=== PATIENT | male | born 1985 | race Caucasian/White ===

== ENCOUNTER 2017-05-13 09:17 | Inpatient (IN) ==
[2017-05-13] MEDS ORDERED: *HR* HYDROmorphone (PF) 1 MG/ML SYRINGE IVP ONE ×3 (09:30→16:30)
[2017-05-13] MEDS ORDERED: Ondansetron 4 MG/2 ML VIAL IVP ONE (09:30)
[2017-05-13] MEDS ORDERED: 0.9 % Sodium Chloride 1,000 ML IVC ONE (09:31)
--- NOTE | 2017-05-13 09:46 | Emergency Department Note ---
Disposition Clinical Impression: Renal colic Hydronephrosis Qualifiers: Hydronephrosis type: unspecified Qualified Code(s): N13.30 - Unspecified hydronephrosis Disposition: Admitted As Inpatient Condition: Good Referrals: Iraida Land MD [Primary Care Provider] - Forms: ED Satisfaction Letter, Work/School Release Time of Disposition: 10:58 Abdominal Pain HPI - General Chief Complaint: ED Abdominal Pain Stated Complaint: "kidney stones" Time Seen by Provider: 05/13/17 09:29 Source: patient, family Mode of arrival: ambulatory Limitations: no limitations Nursing Notes Reviewed: Yes Vital Signs Reviewed: Yes - History of Present Illness HPI Narrative: 32-year-old male who was scheduled for right kidney stone extraction and apparently they was not completed due to the fact of complication found during the procedure. Patient comes in with severe right flank pain. Pt Subjective Complaint: abdominal pain, flank pain Onset (ago): hour(s) Consistency: constant Location: R flank Pain Scale: 10 Quality: aching Radiation: none Migration to: no migration Improves with: nothing Worsens with: nothing Context: other Associated symptoms: Reports: nausea - Related Data Home Medications Medication Instructions Recorded Confirmed Citalopram Hydrobromide 10 mg PO BID 05/11/17 05/13/17 [Citalopram HBr] Gemfibrozil [Lopid] 600 mg PO BID 05/11/17 05/13/17 Lisinopril [Zestril] 10 mg PO HS 05/11/17 05/13/17 Allergies Allergy/AdvReac Type Severity Reaction Status Date / Time atenolol Allergy See Verified 05/13/17 09:18 Comments atorvastatin [From Lipitor] Allergy Itching Verified 05/13/17 09:18 Bee Pollen Allergy See Verified 05/13/17 09:18 Comments ketorolac [From Toradol] Allergy Anaphylaxis Verified 05/13/17 09:18 simvastatin Allergy Cramping Verified 05/13/17 09:18 of the Muscles All systems ED: reviewed and negative except as stated. Constitutional: Denies: fever, chills, weakness, weight change Eyes: Denies: eye pain, eye discharge, vision change ENT ED: Denies: ear pain, throat pain, dental pain, hearing loss, epistaxis, congestion, dysphagia Cardiovascular: Denies: chest pain, palpitations, dyspnea on exertion, edema, syncope Respiratory: Denies: cough, dyspnea, wheezes, hemoptysis, stridor Gastrointestinal: Reports: abdominal pain. Denies: nausea, vomiting, diarrhea, constipation, hematemesis, melena, hematochezia Genitourinary: Denies: urgency, dysuria, frequency, hematuria Musculoskeletal: Reports: back pain. Denies: neck pain, arthralgia, myalgia Integumentary: Denies: rash, abrasion, lesions Neurological: Denies: headache, weakness, numbness, paresthesias, confusion, abnormal gait, vertigo Psychiatric: Denies: anxiety, depression, suicidal thoughts, homicidal thoughts , auditory hallucinations, visual hallucinations Endocrine: Denies: fatigue Hematological/Lymphatic: Denies: easy bleeding, easy bruising Allergic/Immunologic: Denies: facial swelling, urticaria Abdominal Pain PMH - Past Medical History Medical history: Reports: hyperlipidemia, hypertension, kidney stones Male Surgical History: Reports: other Psychiatric history: Reports: anxiety - Social History Smoking status: Never smoker Alcohol use: Reports: none Drug use: Reports: none Physical Exam - General Limitations: no limitations General appearance: alert, anxious - Head Head exam: atraumatic, normocephalic, normal inspection - Eye Eye exam: Present: normal appearance, PERRL, EOMI - ENT ENT exam: normal exam, normal oropharynx, mucous membranes moist - Neck Neck exam: Present: normal inspection, full ROM, trachea midline - Chest Chest inspection: Present: normal inspection, symmetric chest wall rise - Respiratory Respiratory exam: Present: normal lung sounds bilaterally - Cardiovascular Cardiovascular exam: Present: regular rate, normal rhythm, normal heart sounds - Abdominal Exam Abdominal exam: Present: soft, Non-Tender. Absent: tenderness, distention, guarding, rebound, rigidity - Extremities Exam Extremities exam: Present: normal inspection, full ROM. Absent: tenderness, pedal edema - Expanded Lower Extremity Exam Neurovascular/Tendon exam: Absent: motor deficit, sensory deficit, tendon deficit - Back Exam Back exam: Present: normal inspection, full ROM. Absent: tenderness - Neurological Exam Neurological exam: Present: alert, oriented X3 - Psychiatric Psychiatric exam: Present: normal affect, normal mood - Skin Skin exam: Present: warm, dry, intact, normal color Course - Reevaluation(s) Reevaluation #1: 32-year-old who has a history of a renal stone who was undergoing a procedure that was aborted says his pain is worse today. CT scan shows some increased hydronephrosis which the etiology is unknown could be a passed stone. Patient has intractable pain will be admitted to the hospitalist with a consult on urology. Time: 11:13 - Consultations Consultation #1: Discussd with Dr. Vallejo, admit to the hosptialist and he will see in consult. Time: 10:57 Consultation #2: Discussed with Dr. Amezcua admit. Time: 11:12 Vital Signs Temperature 97.5 F L 05/13/17 09:18 Pulse Rate 67 05/13/17 09:18 Respiratory Rate 18 05/13/17 09:18 Blood Pressure 144/99 05/13/17 09:18 O2 Sat by Pulse Oximetry 100 05/13/17 09:18 Temperature 97.5 F L 05/13/17 09:18 Pulse Rate 65 05/13/17 11:03 Respiratory Rate 16 05/13/17 11:03 Blood Pressure 128/75 05/13/17 11:03 O2 Sat by Pulse Oximetry 93 05/13/17 11:03 Oxygen Delivery Oxygen Delivery Room Air Abdominal Pain - Lab Data Lab results reviewed: Yes I reviewed the patient's lab results. Result diagrams: 05/13/17 09:40 05/13/17 09:40 Lab Results 05/13/17 05/13/17 05/13/17 Range/Units 09:40 09:40 10:57 WBC 7.9 (4.3-11.1) K/mcL RBC 4.97 (4.19-5.50) M/mcL Hgb 14.6 (12.9-16.9) g/dL Hct 43.0 (37.5-50.1) % MCV 86.5 (83.0-100.0) fL MCH 29.4 (28.0-33.3) pg MCHC 34.0 (31.6-35.5) g/dL RDW 13.2 (11.5-14.5) % Plt Count 265 (140-400) K/mcL MPV 8.6 L (9.4-12.4) fL Immature Gran % 0.5 (0-4) % Seg Neutrophils % 52.4 % Lymphocytes % 30.8 % Monocytes % 9.9 % Eosinophils % 6.0 % Basophils % 0.4 % Neutrophils # 4.1 (1.6-8.9) K/mcL Lymphocytes # 2.4 (0.6-4.6) K/mcL Monocytes # 0.8 (0.0-1.3) K/mcL Eosinophils # 0.5 (0.0-0.6) K/mcL Basophils # 0.0 (0.0-0.2) K/mcL Sodium 140 (136-145) mEq/L Potassium 3.5 (3.5-4.5) mEq/L Chloride 102 (98-109) mEq/L Carbon Dioxide 27 (19-29) mEq/L BUN 14 (8-26) mg/dL Creatinine 1.04 (0.72-1.25) mg/dL Est GFR ( Amer) > 60 (> 60) Est GFR (Non-Af Amer) > 60 (> 60) BUN/Creatinine Ratio 13 (6-26) Glucose 90 (70-99) mg/dL Calculated Osmolality 290 (280-300) Calcium 9.6 (8.6-10.8) mg/dL Urine Color Yellow (Yellow) Urine Clarity Clear (Clear) Urine pH 6.5 (5.0-8.0) pH Units Ur Specific [place] 1.018 (1.010-1.025) Urine Protein 30 H (Neg-Trace) mg/dL Urine Glucose (UA) Normal (Normal) mg/dL Urine Ketones Negative (Negative) mg/dL Urine Blood Large H (Negative) Urine Nitrite Negative (Negative) Urine Bilirubin Negative (Negative) Urine Urobilinogen Normal (Normal) mg/dL Ur Leukocyte Esterase Negative (Negative) Urine Microscopic RBC 50-100 H (0-3) per hpf Urine Microscopic WBC 15-30 H (0-3) per hpf Ur Squamous Epith Cells Few (None-Few) per lpf Urine Bacteria None Seen (None-Few) per hpf Hyaline Casts None Seen (None-Few) per lpf Ur Culture Indicated? NO (NO) - Radiology Data Radiology results reviewed: Yes I reviewed the patient's radiology results. Abdomen/Pelvis CT 05/13/17 09:30 IMPRESSION: 1. Hydronephrosis and right ureteral dilation however no definite, obstructing lithiasis is identified. This appearance can be seen with a recently passed stone. 2. Re- demonstrated 11 mm calculus about the inferior pole of the right kidney. 3. Surgical clips are on the ureteropelvic junction and along the course of the ureter. 4. Submucosal fat deposition and mild mesenteric adenopathy in the right lower quadrant. Please correlate for any history of inflammatory bowel disease. D/ / Sharif Okeefe / Sharif Okeefe Interpreting Provider: Sharif Okeefe
[2017-05-13 09:51] LABS: Basophils % 0.4 %; Eosinophils # 0.5 K/mcL (0.0-0.6); Hemoglobin 14.6 g/dL (12.9-16.9); Immature Granulocytes % 0.5 % (0-4); Lymphocytes # 2.4 K/mcL (0.6-4.6); Lymphocytes % 30.8 %; Mean Corpuscular Hemoglobin 29.4 pg (28.0-33.3); Mean Corpuscular Volume 86.5 fL (83.0-100.0); Mean Platelet Volume 8.6 fL (9.4-12.4); Monocytes # 0.8 K/mcL (0.0-1.3); Monocytes % 9.9 %; Neutrophils # 4.1 K/mcL (1.6-8.9); Platelet Count 265 K/mcL (140-400); Red Blood Count 4.97 M/mcL (4.19-5.50); Red Cell Distribution Width 13.2 % (11.5-14.5); Segmented Neutrophils % 52.4 %
[2017-05-13 10:01] LABS: BUN/Creatinine Ratio 13 (6-26); Blood Urea Nitrogen 14 mg/dL (8-26); Calcium 9.6 mg/dL (8.6-10.8); Carbon Dioxide 27 mEq/L (19-29); Chloride 102 mEq/L (98-109); Glucose 90 mg/dL (70-99); Osmolality,Calculated 290 (280-300); Potassium 3.5 mEq/L (3.5-4.5); Sodium 140 mEq/L (136-145); eGFR For African Americans > 60 (> 60); eGFR For Non-African Americans > 60 (> 60)
[2017-05-13 11:08] LABS: Bilirubin,Urine Negative (Negative); Blood,Urine Large (Negative); Clarity,Urine Clear (Clear); Color,Urine Yellow (Yellow); Glucose,Urine (UA) Normal (Normal); Ketones,Urine Negative (Negative); Leukocyte Esterase,Urine Negative (Negative); Nitrite,Urine Negative (Negative); PH,Urine 6.5 pH Units (5.0-8.0); Protein,Urine 30 mg/dL (Neg-Trace); Specific Gravity,Urine 1.018 (1.010-1.025); Urobilinogen,Urine Normal (Normal)
[2017-05-13 11:11] LABS: Bacteria,Urine None Seen per hpf (None-Few); Hyaline Casts,Urine None Seen per lpf (None-Few); RBC,Urine 50-100 per hpf (0-3); Squamous Epithelial Cell,Urine Few per lpf (None-Few); WBC,Urine 15-30 per hpf (0-3)
[2017-05-13] MEDS ORDERED: Hyoscyamine SL 0.125 MG TAB.SUBL SL PRN (12:35)
--- NOTE | 2017-05-13 12:38 | Urology - Consult Note ---
Date of Encounter: 05/13/17 Time of Encounter: 12:36 - Assessment and Plan (1) Hydronephrosis Current Visit: Yes Status: Acute Assessment and plan: At this point I believe the patient is having ureteral spasms with subsequent obstruction. These will resolve. At this point patient does not desire a ureteral stent. If his pain fails to improve then we will consider consulting interventional radiology for right nephrostomy tube placement. We will place the patient on Valium and Levsin for ureteral spasms at this time. We will continue to follow closely along. Thank you for consultation. Qualifiers: Hydronephrosis type: unspecified Qualified Code(s): N13.30 - Unspecified hydronephrosis Urology CN:HPI Consult date: 05/13/17 Reason for consult Urology: Other (right flank pain) Requesting physician: Troy Amezcua History of present illness: Mr. Tenorio is a 32-year-old male with a history of recent right ureteroscopy. 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 Patient had to be admitted after surgery secondary to a anaphylactic reaction to Toradol. He was discharged home the following day without any issues. Patient was doing well until 2 AM last night when he started to develop severe right- sided flank pain. CT scan was done today which showed moderate hydronephrosis in the kidney as well as down the ureter. No obvious ureteral obstruction noted. Lab work from today is normal. Past Med Surg Social Fam HX - Past Medical History Medical history: hyperlipidemia, hypertension, kidney stones Psychiatric history: anxiety - Social History Smoking Status: Never smoker Smokeless Tobacco Status: No Alcohol use: none Drug use: none Medications and Allergies Citalopram Hydrobromide [Citalopram HBr] 10 mg PO BID 05/11/17 [History] Gemfibrozil [Lopid] 600 mg PO BID 05/11/17 [History] Lisinopril [Zestril] 10 mg PO HS 05/11/17 [History] 3 Allergy/AdvReac Type Severity Reaction Status Date / Time atenolol Allergy See Verified 05/13/17 09:18 Comments atorvastatin [From Lipitor] Allergy Itching Verified 05/13/17 09:18 Bee Pollen Allergy See Verified 05/13/17 09:18 Comments ketorolac [From Toradol] Allergy Anaphylaxis Verified 05/13/17 09:18 simvastatin Allergy Cramping Verified 05/13/17 09:18 of the Muscles Review of Systems - Constitutional no chills - EENT Nose, mouth and throat: no dizziness - Cardiovascular no chest pain - Respiratory no cough - Gastrointestinal abdominal pain - Musculoskeletal back pain - Integumentary no erythema - Neurological no confusion - Psychiatric no anxiety Exam Initial Vital Signs Temp Pulse Resp BP Pulse Ox 97.5 F L 67 18 144/99 100 05/13/17 09:18 05/13/17 09:18 05/13/17 09:18 05/13/17 09:18 05/13/17 09:18 - General physical appearance Present: well developed - Eyes Present: PERRL - ENT Present: normal nares - Neck Present: no masses - Respiratory Present: normal respiratory effort - Cardiovascular Cardiovascular exam IM: RRR - Abdomen Abdomen: Present: soft Urology Results - Labs 05/13/17 09:40 05/13/17 09:40 Abnormal lab results MPV 8.6 fL (9.4-12.4) L 05/13/17 09:40 Urine Protein 30 mg/dL (Neg-Trace) H 05/13/17 10:57 Urine Blood Large (Negative) H 05/13/17 10:57 Urine Microscopic RBC 50-100 per hpf (0-3) H 05/13/17 10:57 Urine Microscopic WBC 15-30 per hpf (0-3) H 05/13/17 10:57 All other labs normal. - Imaging CT scan - abdomen: image reviewed CT scan - pelvis: image reviewed Consult Discharge Plan - Plan Referrals: Iraida Land MD [Primary Care Provider] -
[2017-05-13] MEDS ORDERED: *HR* HYDROmorphone (PF) 1 MG/ML SYRINGE IVP PRN (12:49)
[2017-05-13] MEDS ORDERED: Naloxone 0.4 MG/ML INJ IVP PRN (12:49)
[2017-05-13] MEDS: diazePAM 5 MG TABLET PO SCH ×2 (12:56→21:55)
--- NOTE | 2017-05-13 12:59 | Internal Med History&Physical ---
<So Queen - Last Filed: 05/13/17 13:09> Date of Encounter: 05/13/17 Time of Encounter: 12:56 Assessment and Plan (1) Hydronephrosis Current visit: Yes Status: Acute Patient has been experiencing right flank pain-history of kidney stones with a recent right ureteroscopy. Continues to experience right flank pain CT scan does show moderate hydronephrosis and the kidney as well as down the ureter no obvious unilateral obstruction noted. Urology has been consulted 2 we will give IV fluids 3 continue with Dilaudid for pain 4 Zofran for nausea Qualifiers: Hydronephrosis type: unspecified Qualified Code(s): N13.30 - Unspecified hydronephrosis (2) Right kidney stone Current visit: No Status: Acute 1 CT of abdomen does show 11 mm calculus about the inferior pole of the right kidney. Urology has been consulted 2 continue with IV fluids 3 Dilaudid and Zofran as needed 4 strain urine (3) Hypertension Current visit: No Status: Chronic Presently stable we will continue with home medications Qualifiers: Hypertension type: essential hypertension Qualified Code(s): I10 - Essential (primary) hypertension (4) DVT prophylaxis Current visit: No Status: Acute SCDs Internal Medicine - H&P: HPI Chief complaint: R flank pain Admitted From: Emergency Dept Plans for Post Hospital Care: Home History of present illness: Mr. Tenorio is a 32 year old male past medical history of hypertension hyperlipidemia kidney stones. 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 He experienced an anaphylactic reaction to Toradol postoperatively and was admitted overnight for observation and discharged without any issues. Patient was doing well until approximately 2 AM last night when he developed severe right sided flank pain which radiated to his abdomen. He presented to the ER a CT of his abdomen did show moderate hydronephrosis no obvious ureteral obstruction noted. Lab work was unremarkable. He was admitted for further work up evaluation. Urology has been consultation per ER physician. Presently the patient does complain of right flank pain upon movement otherwise he is comfortable and hemodynamically stable at this time. I did review this case with Dr. Amezcua who agrees with plan. Past Med Surg Social Fam HX - Past Medical History Medical history: hyperlipidemia, hypertension, kidney stones Psychiatric history: anxiety - Social History Smoking Status: Never smoker Smokeless Tobacco Status: No Alcohol use: none Drug use: none - Family History Father Living Status: Still Living Hx Family Cardiac Disorders: Yes (History of CAD with multiple stents first [place] at age 28) Mother Living Status: Still Living Hx Family Endocrine Disorder: Yes (Diabetes, hypertension) Internal Medicine - H&P: Meds Citalopram Hydrobromide [Citalopram HBr] 10 mg PO BID 05/11/17 [History] Gemfibrozil [Lopid] 600 mg PO BID 05/11/17 [History] Lisinopril [Zestril] 10 mg PO HS 05/11/17 [History] 3 Allergy/AdvReac Type Severity Reaction Status Date / Time atenolol Allergy See Verified 05/13/17 09:18 Comments atorvastatin [From Lipitor] Allergy Itching Verified 05/13/17 09:18 Bee Pollen Allergy See Verified 05/13/17 09:18 Comments ketorolac [From Toradol] Allergy Anaphylaxis Verified 05/13/17 09:18 simvastatin Allergy Cramping Verified 05/13/17 09:18 of the Muscles All Systems PM: A 10-system review of systems was performed and is negative for pertinent findings except as documented above in the HPI. - Constitutional Constitutional: no chills, no fever(s), no night sweats - EENT Eyes: no change in vision, no discharge, no pain, no photophobia Ears: no ear discharge, no ear pain, no tinnitus Nose, mouth and throat: no dysphagia, no nasal discharge, no neck pain, no sore throat - Cardiovascular Cardiovascular ROS IM: no chest pain, no diaphoresis, no dyspnea, no lightheadedness, no palpitations, no syncope - Respiratory Respiratory: no cough, no dyspnea, no wheezing, no excessive phlegm production - Gastrointestinal Gastrointestinal: abdominal pain, nausea - Musculoskeletal Musculoskeletal ROS IM: back pain, no numbness, no tingling - Integumentary Integumentary IM: no rash, no unusual bruising - Neurological Neurological ROS: no confusion, no convulsions, no focal weakness, no numbness, no tingling, no tremor(s) - Hematologic/Lymphatic Hematologic/Lymphatic: no easy bruising - Constitutional Vitals: Temp Pulse Resp BP Pulse Ox 97.5 F L 83 14 119/76 97 05/13/17 09:18 05/13/17 11:53 05/13/17 11:53 05/13/17 11:53 05/13/17 11:53 General appearance: Present: A&O X 3 - Head Head exam: Present: atraumatic, normocephalic - Eye Eye exam: Present: PERRL, conjuntiva pink, sclera anicteric Pupils: Present: PERRL - Neck Neck exam general surgery: Present: supple, trachea midline. Absent: lymphadenopathy - Respiratory Respiratory exam: Present: CTAB. Absent: accessory muscle use, rales, rhonchi, wheezes - Cardiovascular Cardiovascular exam: Present: RRR, +S1, +S2. Absent: diastolic murmur, gallop, rubs, systolic murmur - GI/Abdominal GI/Abdominal exam: Present: normal bowel sounds, soft, no peritoneal signs. Absent: distended, tenderness - Extremities Exam Extremities exam: Present: warm, radial pulses palpable and symmetrical. Absent : calf tenderness, cyanotic, pedal edema - Back Exam Back exam: Present: CVA tenderness (R) - Neurological Exam Neurological exam: Present: CN II-XII intact, oriented X3, no focal deficits. Absent: pronater drift, facial droop, speech deficit - Skin Skin exam: Present: dry, intact Internal Med - H&P Results - Labs CBC & Chem 7: 05/13/17 09:40 05/13/17 09:40 - Diagnostic Studies Other Images Additional comments: Abdomen/Pelvis CT 05/13/17 09:30 IMPRESSION: 1. Hydronephrosis and right ureteral dilation however no definite, obstructing lithiasis is identified. This appearance can be seen with a recently passed stone. 2. Re- demonstrated 11 mm calculus about the inferior pole of the right kidney. 3. Surgical clips are on the ureteropelvic junction and along the course of the ureter. 4. Submucosal fat deposition and mild mesenteric adenopathy in the right lower quadrant. Please correlate for any history of inflammatory bowel disease. D/ / Sharif Okeefe / Sharif Okeefe Interpreting Provider: Sharif Okeefe <Goldie,Troy P - Last Filed: 05/15/17 07:43> Date of Encounter: 05/15/17 Internal Medicine - H&P: HPI History of present illness: Mr. Tenorio is a 32 year old male All Systems PM: A 10-system review of systems was performed and is negative for pertinent findings except as documented above in the HPI. - Constitutional Vitals: Temp Pulse Resp BP Pulse Ox 99.1 F 98 18 101/58 95 05/15/17 06:36 05/15/17 06:36 05/15/17 06:36 05/15/17 06:36 05/15/17 06:36 Internal Med - H&P Results - Labs CBC & Chem 7: 05/14/17 04:06 05/14/17 04:06 Labs: Urine 05/14/17 Range/Units 15:41 Urine Color Yellow (Yellow) Urine Clarity Clear (Clear) Urine pH 7.5 (5.0-8.0) pH Units Ur Specific [place] 1.013 (1.010-1.025) Urine Protein Trace (Neg-Trace) mg/dL Urine Glucose (UA) Normal (Normal) mg/dL - Attending Attestation I examined this patient and my medical decision-making was reviewed with the Resident Physician/PUTTY WORKER. I agree with the documented findings, disposition and treatment plan as described except to the extent set forth below. patient seen and examined chart reviewed. Assessment and plan discussed with PUTTY WORKER Agree with overall management.
[2017-05-13] MEDS: 0.9 % Sodium Chloride 1,000 ML IVC SCH ×2 (13:31→21:30)
[2017-05-13] MEDS ORDERED: *HR* HYDROmorphone (PF) 1 MG/ML SYRINGE IM ONE (16:30)
[2017-05-13] MEDS: Ondansetron 4 MG/2 ML VIAL IVP PRN (16:31)
[2017-05-13] MEDS: *HR* HYDROmorphone (PF) 1 MG/ML SYRINGE IVP PRN ×2 (20:26→23:45)
[2017-05-13] MEDS: *HR* Morphine 2 MG/ML SYRINGE IVP PRN (22:59)
[2017-05-14 05:05] LABS: Basophils % 0.2 %; Eosinophils # 0.3 K/mcL (0.0-0.6); Hematocrit 37.6 % (37.5-50.1); Immature Granulocytes % 0.6 % (0-4); Lymphocytes # 1.3 K/mcL (0.6-4.6); Lymphocytes % 11.7 %; Mean Corpuscular Volume 88.1 fL (83.0-100.0); Monocytes # 1.1 K/mcL (0.0-1.3); Monocytes % 9.9 %; Neutrophils # 8.4 K/mcL (1.6-8.9); Platelet Count 226 K/mcL (140-400); Red Blood Count 4.27 M/mcL (4.19-5.50); Red Cell Distribution Width 13.2 % (11.5-14.5); Segmented Neutrophils % 74.6 %
[2017-05-14 05:14] LABS: Hemoglobin 12.4 g/dL (12.9-16.9)
[2017-05-14 05:24] LABS: BUN/Creatinine Ratio 15 (6-26); Blood Urea Nitrogen 17 mg/dL (8-26); Calcium 9.3 mg/dL (8.6-10.8); Carbon Dioxide 29 mEq/L (19-29); Chloride 102 mEq/L (98-109); Glucose 95 mg/dL (70-99); Magnesium 2.1 mg/dL (1.6-2.6); Osmolality,Calculated 287 (280-300); Potassium 4.1 mEq/L (3.5-4.5); Sodium 138 mEq/L (136-145); eGFR For African Americans > 60 (> 60); eGFR For Non-African Americans > 60 (> 60)
--- NOTE | 2017-05-14 08:42 | Urology Progress Note ---
Date of Encounter: 05/14/17 Time of Encounter: 08:41 - Assessment and Plan (1) Hydronephrosis Current Visit: Yes Status: Acute Assessment and plan: will reeval at lunch. if not much improved will see about IR placing nephrostomy tube Qualifiers: Hydronephrosis type: unspecified Qualified Code(s): N13.30 - Unspecified hydronephrosis Progress Note Narrative: patient seen. states pain is slightly better. Objective Initial Vital Signs Temp Pulse Resp BP Pulse Ox 97.5 F L 67 18 144/99 100 05/13/17 09:18 05/13/17 09:18 05/13/17 09:18 05/13/17 09:18 05/13/17 09:18 - General physical appearance Present: well developed - Abdomen Present: soft - Labs 05/14/17 04:06 05/14/17 04:06 Diabetes panel 05/14/17 Range/Units 04:06 Sodium 138 (136-145) mEq/L Potassium 4.1 (3.5-4.5) mEq/L Chloride 102 (98-109) mEq/L Carbon Dioxide 29 (19-29) mEq/L BUN 17 (8-26) mg/dL Creatinine 1.10 (0.72-1.25) mg/dL Glucose 95 (70-99) mg/dL Calcium 9.3 (8.6-10.8) mg/dL Calcium panel 05/14/17 Range/Units 04:06 Calcium 9.3 (8.6-10.8) mg/dL Pituitary panel 05/14/17 Range/Units 04:06 Sodium 138 (136-145) mEq/L Potassium 4.1 (3.5-4.5) mEq/L Chloride 102 (98-109) mEq/L Carbon Dioxide 29 (19-29) mEq/L BUN 17 (8-26) mg/dL Creatinine 1.10 (0.72-1.25) mg/dL Glucose 95 (70-99) mg/dL Calcium 9.3 (8.6-10.8) mg/dL Adrenal panel 05/14/17 Range/Units 04:06 Sodium 138 (136-145) mEq/L Potassium 4.1 (3.5-4.5) mEq/L Chloride 102 (98-109) mEq/L Carbon Dioxide 29 (19-29) mEq/L BUN 17 (8-26) mg/dL Creatinine 1.10 (0.72-1.25) mg/dL Glucose 95 (70-99) mg/dL Calcium 9.3 (8.6-10.8) mg/dL Consult Discharge Plan - Plan Referrals: Iraida Land MD [Primary Care Provider] -
[2017-05-14] MEDS: diazePAM 5 MG TABLET PO SCH (09:21)
[2017-05-14] MEDS: 0.9 % Sodium Chloride 1,000 ML IVC SCH ×2 (13:37→21:27)
--- NOTE | 2017-05-14 14:57 | Internal Med Progress Note ---
Date of Encounter: 05/14/17 Time of Encounter: 14:55 - Assessment and plan (1) Pyelonephritis Current Visit: Yes Status: Acute Assessment and plan: Urine and blood culture and start IV Rocephin followed CBC (2) Right kidney stone Current Visit: No Status: Acute Assessment and plan: 11 mm stone in the right inferior pole ,urology is consulted (3) Hydronephrosis Current Visit: Yes Status: Acute Assessment and plan: Right hydronephrosis and no obvious obstruction urology has seen the patient planning nephrostomy tube. Follow CMP Qualifiers: Hydronephrosis type: unspecified Qualified Code(s): N13.30 - Unspecified hydronephrosis - Subjective Interval history: Admitted for right sided hydronephrosis and renal calculi. Low-grade temperature and in quite a bit of pain. No hematuria. - Constitutional Vitals: Temp Pulse Resp BP Pulse Ox 99.6 F 100 14 130/73 95 05/14/17 11:52 05/14/17 11:52 05/14/17 11:52 05/14/17 11:52 05/14/17 11:52 General appearance: Present: A&O X 3 - Head Head exam: Present: atraumatic, normocephalic - Eye Eye exam: Present: PERRL, conjuntiva pink, sclera anicteric Pupils: Present: PERRL - Neck Neck exam general surgery: Present: supple, trachea midline. Absent: lymphadenopathy - Respiratory Respiratory exam: Present: CTAB. Absent: accessory muscle use, rales, rhonchi, wheezes - Cardiovascular Cardiovascular exam: Present: RRR, +S1, +S2. Absent: diastolic murmur, gallop, rubs, systolic murmur - GI/Abdominal GI/Abdominal exam: Present: normal bowel sounds, soft, tenderness, no peritoneal signs. Absent: distended Additional comments: Right flank and CVA pain - Extremities Exam Extremities exam: Present: warm, radial pulses palpable and symmetrical. Absent : calf tenderness, cyanotic, pedal edema - Neurological Exam Neurological exam: Present: CN II-XII intact, oriented X3, no focal deficits. Absent: pronater drift, facial droop, speech deficit - Skin Skin exam: Present: dry, intact Internal Medicine: Result - Labs CBC & Chem 7: 05/14/17 04:06 05/14/17 04:06 Labs: Short CBC 05/14/17 Range/Units 04:06 WBC 11.3 H (4.3-11.1) K/mcL Hgb 12.4 L D (12.9-16.9) g/dL Hct 37.6 (37.5-50.1) % Plt Count 226 (140-400) K/mcL Neutrophils # 8.4 (1.6-8.9) K/mcL BMP 05/14/17 04:06 Sodium 138 Potassium 4.1 Chloride 102 Carbon Dioxide 29 BUN 17 Creatinine 1.10 Glucose 95 Calcium 9.3 Consult Discharge Plan - Plan Referrals: Iraida Land MD [Primary Care Provider] -
[2017-05-14] MEDS: cefTRIAXone 1,000 MG in Water for inj. (sterile) 10 ML IVP SCH (15:06)
[2017-05-14] MEDS: Ondansetron 4 MG/2 ML VIAL IVP PRN (15:33)
[2017-05-14] MEDS: *HR* HYDROmorphone (PF) 1 MG/ML SYRINGE IVP PRN (15:33)
[2017-05-14 15:49] LABS: Bilirubin,Urine Negative (Negative); Blood,Urine Large (Negative); Clarity,Urine Clear (Clear); Color,Urine Yellow (Yellow); Glucose,Urine (UA) Normal (Normal); Ketones,Urine Negative (Negative); Leukocyte Esterase,Urine Moderate (Negative); Nitrite,Urine Negative (Negative); PH,Urine 7.5 pH Units (5.0-8.0); Protein,Urine Trace mg/dL (Neg-Trace); Specific Gravity,Urine 1.013 (1.010-1.025); Urobilinogen,Urine Normal (Normal)
[2017-05-14 15:51] LABS: Bacteria,Urine Few per hpf (None-Few); Hyaline Casts,Urine None Seen per lpf (None-Few); RBC,Urine 50-100 per hpf (0-3); Squamous Epithelial Cell,Urine Few per lpf (None-Few); WBC,Urine 15-30 per hpf (0-3)
[2017-05-14] MEDS: *HR* Morphine 2 MG/ML SYRINGE IVP PRN (21:24)
[2017-05-14] MEDS: Acetaminophen 325 MG TABLET PO PRN (21:25)
[2017-05-15] MEDS: Acetaminophen 325 MG TABLET PO PRN ×3 (04:21→21:05)
[2017-05-15] MEDS: 0.9 % Sodium Chloride 1,000 ML IVC SCH ×2 (04:22→14:12)
[2017-05-15] MEDS: *HR* Morphine 2 MG/ML SYRINGE IVP PRN (04:29)
--- NOTE | 2017-05-15 07:05 | Urology Progress Note ---
Date of Encounter: 05/15/17 Time of Encounter: 07:05 - Assessment and Plan (1) Hydronephrosis Current Visit: Yes Status: Acute Assessment and plan: will consult IR for nephrostomy tube placement today. Qualifiers: Hydronephrosis type: unspecified Qualified Code(s): N13.30 - Unspecified hydronephrosis Progress Note Narrative: patient seen. pain improved, but with significant fevers last night. labs pending. Objective Initial Vital Signs Temp Pulse Resp BP Pulse Ox 97.5 F L 67 18 144/99 100 05/13/17 09:18 05/13/17 09:18 05/13/17 09:18 05/13/17 09:18 05/13/17 09:18 - General physical appearance Present: well developed - Abdomen Present: soft - Labs 05/14/17 04:06 05/14/17 04:06 Consult Discharge Plan - Plan Referrals: Iraida Land MD [Primary Care Provider] -
[2017-05-15 07:21] LABS: Basophils % 0.2 %; Eosinophils # 0.1 K/mcL (0.0-0.6); Eosinophils % 0.9 %; Hematocrit 37.8 % (37.5-50.1); Immature Granulocytes % 0.4 % (0-4); Lymphocytes # 1.2 K/mcL (0.6-4.6); Lymphocytes % 9.4 %; Mean Corpuscular HGB Conc 34.4 g/dL (31.6-35.5); Mean Corpuscular Hemoglobin 29.3 pg (28.0-33.3); Mean Corpuscular Volume 85.3 fL (83.0-100.0); Mean Platelet Volume 8.8 fL (9.4-12.4); Monocytes # 1.5 K/mcL (0.0-1.3); Monocytes % 12.2 %; Neutrophils # 9.6 K/mcL (1.6-8.9); Platelet Count 208 K/mcL (140-400); Red Blood Count 4.43 M/mcL (4.19-5.50); Red Cell Distribution Width 12.9 % (11.5-14.5); Segmented Neutrophils % 76.9 %
[2017-05-15 07:42] LABS: Alanine Aminotransferase 10 Units/L (0-55); Albumin 3.2 g/dL (3.5-5.0); Albumin/Globulin Ratio 0.7 (1.1-2.2); Alkaline Phosphatase 109 Units/L (38-126); Aspartate Amino Transferase 12 Units/L (5-34); BUN/Creatinine Ratio 12 (6-26); Bilirubin,Total 0.9 mg/dL (0.2-1.2); Blood Urea Nitrogen 12 mg/dL (8-26); Carbon Dioxide 24 mEq/L (19-29); Chloride 103 mEq/L (98-109); Globulin 4.4 g/dL (2.4-3.5); Glucose 106 mg/dL (70-99); Osmolality,Calculated 282 (280-300); Potassium 3.6 mEq/L (3.5-4.5); Sodium 136 mEq/L (136-145); Total Protein 7.6 g/dL (6.0-8.3); eGFR For African Americans > 60 (> 60); eGFR For Non-African Americans > 60 (> 60)
[2017-05-15 07:45] LABS: INR 1.5; Prothrombin Time 16.4 Seconds (9.4-12.1)
[2017-05-15] MEDS ORDERED: *HR* FentaNYL (PF) 100 MCG/2 ML VIAL IVP ONE (09:24)
[2017-05-15] MEDS ORDERED: *HR* Midazolam HCl 2 MG/2 ML VIAL IVP ONE (09:24)
--- NOTE | 2017-05-15 09:24 | Pre-Sedation Evaluation ---
Pre-sedation evaluation - Pre-sedation checklist Recent Vitals: Last Vital Signs Temp 99.5 F 05/15/17 08:30 Pulse 87 05/15/17 08:30 Resp 16 05/15/17 08:30 BP 109/68 05/15/17 08:30 Pulse Ox 96 05/15/17 08:30 Airway Assessment: Patient can open mouth completely, TMJ function normal, Micrognathia (under-bite, receding chin) absent, Neck with adequate range of motion Dentition: No loose teeth or bridges Possible difficult airway: No ASA Classification *see protocol: CLASS II-Mild systemic disease Plan of Care: Pt appropriate candidate for procedure/moderate/conscious sedation , Risks/benefits of procedure/sedation discussed w/ patient/family
[2017-05-15] MEDS ORDERED: 0.9 % Sodium Chloride 500 ML ONE (09:31)
[2017-05-15] MEDS: *HR* HYDROmorphone (PF) 1 MG/ML SYRINGE IVP PRN ×2 (12:36→18:05)
[2017-05-15] MEDS: cefTRIAXone 1,000 MG in Water for inj. (sterile) 10 ML IVP SCH (14:42)
--- NOTE | 2017-05-15 16:45 | Internal Med Progress Note ---
Date of Encounter: 05/15/17 Time of Encounter: 11:50 - Assessment and plan (1) Sepsis Current Visit: Yes Status: Acute Assessment and plan: Pt does meet sepsis criteria with fever, elevated WBC, Source of inf as UTI / Pyelonephritis Urine cx growing G+ve cocci Cont empirical abx Rocephin cont IV fluids Qualifiers: Qualified Code(s): A41.9 - Sepsis, unspecified organism (2) Hydronephrosis Current Visit: Yes Status: Acute Assessment and plan: Right hydronephrosis and no obvious obstruction Mostly due to ureter spasm with recently passed stone as well as infection Urology on board had Nephrostomy placed today by IR Qualifiers: Hydronephrosis type: unspecified Qualified Code(s): N13.30 - Unspecified hydronephrosis (3) Hypertension Current Visit: No Status: Chronic Assessment and plan: resumed home meds Qualifiers: Hypertension type: essential hypertension Qualified Code(s): I10 - Essential (primary) hypertension (4) Pyelonephritis Current Visit: Yes Status: Acute Assessment and plan: Cont empirical abx Rocephin cont IV F on IV analgesics PRN (5) DVT prophylaxis Current Visit: No Status: Acute (6) UTI (urinary tract infection) Current Visit: Yes Status: Acute Qualifiers: Urinary tract infection type: acute pyelonephritis Qualified Code(s): N10 - Acute pyelonephritis - Subjective Interval history: Mr. Tenorio is a 32 year old male past medical history of hypertension hyperlipidemia kidney stones. 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 He experienced an anaphylactic reaction to Toradol postoperatively and was admitted overnight for observation and discharged without any issues. Patient was doing well until approximately the night prior to ER visit when he developed severe right sided flank pain which radiated to his abdomen. His CT of his abdomen did show moderate hydronephrosis no obvious ureteral obstruction noted. Pt was admitted in the hospital and did have Rt nephrosoty tube placed in today by IR. He still have some low grade temps, T max @102. 6 this morning. His pain is tolerable with current medications - Constitutional Vitals: Temp Pulse Resp BP Pulse Ox 100 F H 103 16 113/72 95 05/15/17 14:10 05/15/17 14:10 05/15/17 14:10 05/15/17 14:10 05/15/17 14:10 General appearance: Present: A&O X 3 - Head Head exam: Present: atraumatic, normal inspection - Neck Neck exam general surgery: Present: supple - Respiratory Respiratory exam: Present: decreased breath sounds. Absent: rales, respiratory distress, rhonchi, wheezes - Cardiovascular Cardiovascular exam: Present: RRR, +S1, +S2. Absent: tachycardia - GI/Abdominal GI/Abdominal exam: Present: normal bowel sounds, soft. Absent: rebound, rigid, tenderness - Extremities Exam Extremities exam: Absent: calf tenderness, pedal edema, tenderness - Back Exam Back exam: Present: CVA tenderness (R) Additional comments: Nephrostomy tube + on Rt side - Neurological Exam Neurological exam: Present: alert, oriented X3 - Psychiatric Psychiatric exam: Present: normal affect, normal mood Internal Medicine: Result - Labs CBC & Chem 7: 05/15/17 06:41 05/15/17 06:41 Labs: Short CBC 05/15/17 Range/Units 06:41 WBC 12.5 H (4.3-11.1) K/mcL Hgb 13.0 (12.9-16.9) g/dL Hct 37.8 (37.5-50.1) % Plt Count 208 (140-400) K/mcL Neutrophils # 9.6 H (1.6-8.9) K/mcL BMP 05/15/17 06:41 Sodium 136 Potassium 3.6 Chloride 103 Carbon Dioxide 24 BUN 12 Creatinine 0.98 Glucose 106 H Calcium 9.0 Liver Function 05/15/17 Range/Units 06:41 Total Bilirubin 0.9 (0.2-1.2) mg/dL AST 12 (5-34) Units/L ALT 10 (0-55) Units/L Alkaline Phosphatase 109 (38-126) Units/L Albumin 3.2 L (3.5-5.0) g/dL - ABG Interpretation ABG results: PT/INR, D-dimer PT 16.4 Seconds (9.4-12.1) H 05/15/17 07:23 - Impressions Impressions Nephrostomy 05/15/17 00:00 IMPRESSION: Successful percutaneous nephrostomy tube placement on the right using CT guidance D/ / Callum Vidal MD / Callum Vidal MD Interpreting Provider: Callum Vidal MD Consult Discharge Plan - Plan Referrals: Iraida Land MD [Primary Care Provider] -
[2017-05-15] MEDS: Ondansetron 4 MG/2 ML VIAL IVP PRN (18:03)
[2017-05-16 06:49] LABS: Basophils % 0.4 %; Eosinophils # 0.4 K/mcL (0.0-0.6); Eosinophils % 4.5 %; Hematocrit 36.3 % (37.5-50.1); Hemoglobin 12.3 g/dL (12.9-16.9); Immature Granulocytes % 0.6 % (0-4); Lymphocytes # 1.5 K/mcL (0.6-4.6); Lymphocytes % 16.2 %; Mean Corpuscular HGB Conc 33.9 g/dL (31.6-35.5); Mean Corpuscular Volume 85.6 fL (83.0-100.0); Mean Platelet Volume 8.8 fL (9.4-12.4); Monocytes # 1.4 K/mcL (0.0-1.3); Neutrophils # 5.7 K/mcL (1.6-8.9); Platelet Count 190 K/mcL (140-400); Red Blood Count 4.24 M/mcL (4.19-5.50); Red Cell Distribution Width 12.9 % (11.5-14.5); Segmented Neutrophils % 63.3 %
--- NOTE | 2017-05-16 07:11 | Urology Progress Note ---
Date of Encounter: 05/16/17 Time of Encounter: 07:11 - Assessment and Plan (1) Hydronephrosis Current Visit: Yes Status: Acute Assessment and plan: Status post right nephrostomy tube. Urine is draining well from the tube. I would recommend to provide him a leg bag to utilize for drainage. Qualifiers: Hydronephrosis type: unspecified Qualified Code(s): N13.30 - Unspecified hydronephrosis (2) UTI (urinary tract infection) Current Visit: Yes Status: Acute Assessment and plan: His fever curve has improved. Consider use of doxycycline for oral antibiotics upon discharge. He would like to be discharged today. His fever curve did improve. I think it may be reasonable to discharge home on doxycycline for [address] Vallejo will arrange for follow-up and possible antegrade nephrostogram once the ureteral edema has resolved. Qualifiers: Urinary tract infection type: acute pyelonephritis Qualified Code(s): N10 - Acute pyelonephritis Progress Note Narrative: Status post right ureteroscopy. He was admitted for flank pain. No stent was left after the surgery. He developed a fever and a nephrostomy tube was placed on the right side. His fevers have improved this morning. Urine culture was positive for Staphylococcus epidermidis. He says he feels well today. Objective Initial Vital Signs Temp Pulse Resp BP Pulse Ox 97.5 F L 67 18 144/99 100 05/13/17 09:18 05/13/17 09:18 05/13/17 09:18 05/13/17 09:18 05/13/17 09:18 - General physical appearance Present: well developed, well nourished, no distress - Respiratory Present: normal respiratory effort - Abdomen Present: soft - Genitourinary Urine Appearance: Present: Hematuria (Urine is light pink.) - Labs 05/16/17 06:19 05/15/17 06:41 Diabetes panel 05/15/17 Range/Units 06:41 Sodium 136 (136-145) mEq/L Potassium 3.6 (3.5-4.5) mEq/L Chloride 103 (98-109) mEq/L Carbon Dioxide 24 (19-29) mEq/L BUN 12 (8-26) mg/dL Creatinine 0.98 (0.72-1.25) mg/dL Glucose 106 H (70-99) mg/dL Calcium 9.0 (8.6-10.8) mg/dL AST 12 (5-34) Units/L ALT 10 (0-55) Units/L Alkaline Phosphatase 109 (38-126) Units/L Albumin 3.2 L (3.5-5.0) g/dL Calcium panel 05/15/17 Range/Units 06:41 Calcium 9.0 (8.6-10.8) mg/dL Albumin 3.2 L (3.5-5.0) g/dL Pituitary panel 05/15/17 Range/Units 06:41 Sodium 136 (136-145) mEq/L Potassium 3.6 (3.5-4.5) mEq/L Chloride 103 (98-109) mEq/L Carbon Dioxide 24 (19-29) mEq/L BUN 12 (8-26) mg/dL Creatinine 0.98 (0.72-1.25) mg/dL Glucose 106 H (70-99) mg/dL Calcium 9.0 (8.6-10.8) mg/dL Adrenal panel 05/15/17 Range/Units 06:41 Sodium 136 (136-145) mEq/L Potassium 3.6 (3.5-4.5) mEq/L Chloride 103 (98-109) mEq/L Carbon Dioxide 24 (19-29) mEq/L BUN 12 (8-26) mg/dL Creatinine 0.98 (0.72-1.25) mg/dL Glucose 106 H (70-99) mg/dL Calcium 9.0 (8.6-10.8) mg/dL Total Bilirubin 0.9 (0.2-1.2) mg/dL AST 12 (5-34) Units/L ALT 10 (0-55) Units/L Alkaline Phosphatase 109 (38-126) Units/L Albumin 3.2 L (3.5-5.0) g/dL Consult Discharge Plan - Plan Additional Instructions: Please provide leg straps for nephrostomy tube. Dr. Vallejo will arrange for follow-up. Please provide whatever work excuse he needs. 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 Referrals: Iraida Land MD [Primary Care Provider] -
[2017-05-16 07:16] LABS: Alanine Aminotransferase 8 Units/L (0-55); Albumin 2.8 g/dL (3.5-5.0); Albumin/Globulin Ratio 0.6 (1.1-2.2); Alkaline Phosphatase 75 Units/L (38-126); Aspartate Amino Transferase 11 Units/L (5-34); BUN/Creatinine Ratio 13 (6-26); Bilirubin,Total 0.6 mg/dL (0.2-1.2); Blood Urea Nitrogen 11 mg/dL (8-26); Calcium 8.8 mg/dL (8.6-10.8); Carbon Dioxide 23 mEq/L (19-29); Chloride 106 mEq/L (98-109); Globulin 4.6 g/dL (2.4-3.5); Glucose 93 mg/dL (70-99); Osmolality,Calculated 281 (280-300); Potassium 4.2 mEq/L (3.5-4.5); Sodium 136 mEq/L (136-145); Total Protein 7.4 g/dL (6.0-8.3); eGFR For African Americans > 60 (> 60); eGFR For Non-African Americans > 60 (> 60)
[2017-05-16] MEDS: 0.9 % Sodium Chloride 1,000 ML IVC SCH ×2 (09:21→09:22)
[2017-05-16 10:24] VITALS: BP 130/87
--- NOTE | 2017-05-16 11:15 | Discharge Summary ---
Date of Encounter: 05/16/17 Time of Encounter: 11:11 - Discharge Diagnosis (1) Sepsis Priority: Primary Status: Acute Qualifiers: Qualified Code(s): A41.9 - Sepsis, unspecified organism (2) UTI (urinary tract infection) Priority: Primary Status: Acute Qualifiers: Urinary tract infection type: acute pyelonephritis Qualified Code(s): N10 - Acute pyelonephritis (3) Hydronephrosis Priority: Primary Status: Acute Qualifiers: Hydronephrosis type: unspecified Qualified Code(s): N13.30 - Unspecified hydronephrosis (4) Pyelonephritis Priority: Primary Status: Acute (5) Hypertension Priority: Secondary Status: Chronic Qualifiers: Hypertension type: essential hypertension Qualified Code(s): I10 - Essential (primary) hypertension (6) DVT prophylaxis Priority: Secondary Status: Acute - Discharge Medications Prescriptions: Acetaminophen w/Cod 300-30 mg [Tylenol w/Codeine #3] 1 each PO Q6HR PRN #20 tablet PRN Reason: Pain Doxycycline Hyclate 100 mg PO BID #30 tablet Lactobacillus [Culturelle] 1 each PO BID #30 [email or web address] Home Medications: Citalopram Hydrobromide [Citalopram HBr] 10 mg PO BID 05/11/17 [History] Gemfibrozil [Lopid] 600 mg PO BID 05/11/17 [History] Lisinopril [Zestril] 10 mg PO HS 05/11/17 [History] Acetaminophen w/Cod 300-30 mg [Tylenol w/Codeine #3] 1 each PO Q6HR PRN #20 tablet 05/16/17 [Rx] Doxycycline Hyclate 100 mg PO BID #30 tablet 05/16/17 [Rx] Lactobacillus [Culturelle] 1 each PO BID #30 cap.[email or web address] 05/16/17 [Rx] Allergies/Adverse Reactions: 3 Allergy/AdvReac Type Severity Reaction Status Date / Time atenolol Allergy See Verified 05/13/17 09:18 Comments atorvastatin [From Lipitor] Allergy Itching Verified 05/13/17 09:18 Bee Pollen Allergy See Verified 05/13/17 09:18 Comments ketorolac [From Toradol] Allergy Anaphylaxis Verified 05/13/17 09:18 simvastatin Allergy Cramping Verified 05/13/17 09:18 of the Muscles Procedures/tests Complete & Pending: Procedures Performed prior 72 hours Category Date Time Status CT guided nephrostomy [CT] Routine Cat Scan 05/15/17 Completed Date of admission: 05/13/17 12:49 Primary care physician: Iraida Land, Consults: 05/15/17 06:58 Consult to Interventional Radiology [CONS] Routine Consulting Provider: Radiology Interventional Cols Reason for Consult: right nephrostomy tube placement Call Completed: No - Patient Status Disposition: Home, Self-Care Condition: Good Overall status at discharge: patient is back to baseline - Discharge Instructions Follow Up With: Iraida Land MD [Primary Care Provider] - Alcides Vallejo MD [Partnered Physician] - Additional Instructions: Please provide leg straps for nephrostomy tube. Dr. Vallejo will arrange for follow-up. Please provide whatever work excuse he needs. 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 Return to school on Sunday05/21/17 - Diet and Activity Activity: increase activity as tolerated Diet: diabetic diet Hospital course: Mr. Tenorio is a 32 year old male past medical history of hypertension hyperlipidemia kidney stones. 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 He experienced an anaphylactic reaction to Toradol postoperatively and was admitted overnight for observation and discharged without any issues. Patient was doing well until approximately the night prior to ER visit when he developed severe right sided flank pain which radiated to his abdomen. His CT of his abdomen did show moderate hydronephrosis no obvious ureteral obstruction noted. Pt was admitted in the hospital and did have Rt nephrosoty tube placed in by IR on 05/15/17. Since then his fever / temp and WBC started trending down. His urine cx growing Staph epidermidis susceptible to Doxycycline. Pt was evaluated by urologist recommend 2 weeks of PO Doxy and f/u with them as an out pt closely. - Time Spent with Patient Total time spent providing and/or coordinating discharge services: - Constitutional Vitals: Temp Pulse Resp BP Pulse Ox 97.2 F L 74 14 130/87 97 05/16/17 10:23 05/16/17 10:23 05/16/17 10:23 05/16/17 10:23 05/16/17 10:23 General appearance: Present: A&O X 3 - Head Head exam: Present: atraumatic, normal inspection - Neck Neck exam general surgery: Present: supple - Respiratory Respiratory exam: Present: CTAB. Absent: decreased breath sounds, rales, respiratory distress, rhonchi, wheezes - Cardiovascular Cardiovascular exam: Present: RRR, +S1, +S2. Absent: systolic murmur - GI/Abdominal GI/Abdominal exam: Present: normal bowel sounds, soft. Absent: rebound, rigid, tenderness - Extremities Exam Extremities exam: Absent: calf tenderness, pedal edema, tenderness - Back Exam Back exam: Absent: CVA tenderness (L), CVA tenderness (R) Additional comments: Rt Nephrostomy tube + - Psychiatric Psychiatric exam: Present: normal affect, normal mood
== END 2017-05-16 12:47 | disposition home or self-care (01) | DRG 689 ==
LOC: 3ANU 09:17 → EMEROO 09:17 → 3ANU 12:44 → SUATTDRO 12:49
PROVIDERS: ADMIT Internal Medicine; ATTEND Family Medicine